=== PATIENT | female | born 1960 | race Two or more races ===

== ENCOUNTER 2017-06-26 05:07 | Emergency (ER) | payer MEDICAID ==
[~2017-06-26] VITALS: Ht 152.4 cm; Wt 67.0 kg
[2017-06-26] MEDS ORDERED: PREDNISONE 20MG TABLET PO STA (05:32)
[2017-06-26] MEDS ORDERED: IPRATROPIUM BROMIDE (0.02%) 0.5MG/2.5ML NEB HHN STA (05:32)
[2017-06-26] MEDS ORDERED: ALBUTEROL (0.083%) 2.5MG/3ML NEB HHN STA (05:32)
[2017-06-26] MEDS ORDERED: ACETAMINOPHEN 500MG TABLET PO ONE (08:30)
[2017-06-26 10:42] VITALS: BP 122/66
== END 2017-06-26 10:59 | disposition home or self-care (01) ==
LOC: ER 07:28
DX: J45.901 Unspecified asthma with (acute) exacerbation (principal); J06.9 Acute upper respiratory infection, unspecified; I10 Essential (primary) hypertension; E78.00 Pure hypercholesterolemia, unspecified
CPT/HCPCS: 71010; 94644; 99285; J7512; J7611; Z7610

== ENCOUNTER 2018-08-06 21:39 | Emergency (ER) | payer MEDICAID ==
[~2018-08-06] VITALS: Ht 167.6 cm; Wt 65.9 kg
[2018-08-06] MEDS ORDERED: HYDROCODONE/ACETAMINOPHEN 5/325MG TABLET PO STA (22:16)
[2018-08-07 00:57] VITALS: BP 121/76
== END 2018-08-07 03:17 | disposition home or self-care (01) ==
LOC: ER 21:39
DX: S82.002A Unspecified fracture of left patella, initial encounter for closed fracture (principal); S06.0X9A Concussion with loss of consciousness of unspecified duration, initial encounter; E78.00 Pure hypercholesterolemia, unspecified; W01.0XXA Fall on same level from slipping, tripping and stumbling without subsequent striking against object, initial encounter; Y93.89 Activity, other specified; Y92.89 Other specified places as the place of occurrence of the external cause
CPT/HCPCS: 29505; 71045; 73562; 99284; L1830

== ENCOUNTER 2019-10-27 13:38 | Emergency (ER) | payer MEDICAID ==
[~2019-10-27] VITALS: Ht 160 cm; Wt 76.0 kg
[2019-10-27] MEDS ORDERED: ONDANSETRON 4MG ODT PO ONE (16:15)
[2019-10-27] MEDS ORDERED: ACETAMINOPHEN 325MG TABLET PO ONE (18:45)
[2019-10-27 18:51] VITALS: BP 137/87
== END 2019-10-27 18:54 | disposition home or self-care (01) ==
LOC: ER 13:38
DX: R11.2 Nausea with vomiting, unspecified (principal); I10 Essential (primary) hypertension; R05 Cough; R42 Dizziness and giddiness; R06.2 Wheezing; Z87.828 Personal history of other (healed) physical injury and trauma; Z91.81 History of falling
CPT/HCPCS: 70450; 71045; 99284; Z7610